=== PATIENT | female | born 1950 | race Caucasian/White ===

== ENCOUNTER 2021-06-08 21:55 | Emergency (ER) | payer BC, MEDICAID ==
[~2021-06-08] VITALS: Ht 167.6 cm; Wt 82.0 kg
[2021-06-08] MEDS ORDERED: IBUPROFEN 600MG TABLET PO STA (22:31)
[2021-06-08 23:27] LABS: BASOPHILS % 0.7 % (0.0-2.0); EOSINOPHILS % 2.1 % (0.0-5.0); HEMATOCRIT. 41.5 % (36.0-48.0); HEMOGLOBIN. 14.4 g/dL (12.0-16.0); LYMPHOCYTES % 24.5 % (20.0-50.0); MEAN CORPUSCULAR HEMOGLOBIN 31.5 pg (28.0-32.0); MEAN CORPUSCULAR VOLUME 91.1 fL (81.0-99.0); MEAN PLATELET VOLUME 7.5 fl (7.4-10.4); MONOCYTES % 11.5 % (2.0-8.0); NEUTROPHILS % 61.2 % (40.0-76.0); PLATELET 246 x1000/uL (130-400); RED BLOOD CELL COUNT 4.56 mill/uL (4.2-5.4)
[2021-06-08 23:32] LABS: CHLORIDE 107 mEq/L (98-107)
[2021-06-09 00:43] VITALS: BP 140/78
== END 2021-06-09 01:05 | disposition home or self-care (01) ==
LOC: ER 21:55
DX: M54.2 Cervicalgia (principal); R60.0 Localized edema; J45.909 Unspecified asthma, uncomplicated
CPT/HCPCS: 36415; 80053; 83880; 85025; 99283

== ENCOUNTER 2022-06-01 22:10 | Emergency (ER) | payer BC, MEDICAID ==
[~2022-06-01] VITALS: Ht 162.6 cm; Wt 73.0 kg
[2022-06-02] MEDS ORDERED: KETOROLAC 60MG/2ML VIAL IM ONE (04:00)
[2022-06-02 05:42] LABS: CLARITY URINE TURBID (CLEAR); COLOR URINE DARK YELLOW (YELLOW); KETONES URINE TRACE (NEGATIVE); LEUKOCYTE ESTERASE URINE 2+ (NEGATIVE); NITRITE URINE NEGATIVE (NEGATIVE); OCCULT BLOOD URINE TRACE (NEGATIVE); PH URINE 5.5 (4.5-8.0); PROTEIN URINE 1+ (NEGATIVE); SPECIFIC GRAVITY URINE 1.031 (1.005-1.030)
[2022-06-02] MEDS ORDERED: CEPH500T MT (05:45)
[2022-06-02] MEDS ORDERED: IBUP-2029 MT (05:45)
[2022-06-02] MEDS ORDERED: EMTR1TAB11 MT (05:59)
[2022-06-02] MEDS ORDERED: RALT400T MT (05:59)
[2022-06-02] MEDS ORDERED: CEFTRIAXONE SODIUM 1 G/VIAL IM ONE (06:00)
[2022-06-02] MEDS ORDERED: AZITHROMYCIN 500 MG TABLET PO ONE (06:00)
[2022-06-02] MEDS ORDERED: CEPHALEXIN 250MG CAPSULE PO ONE (06:00)
[2022-06-02 06:13] LABS: BASOPHILS % 0.8 % (0.0-2.0); EOSINOPHILS % 4.9 % (0.0-5.0); HEMATOCRIT. 38.9 % (36.0-48.0); HEMOGLOBIN. 13.6 g/dL (12.0-16.0); MEAN CORPUSCULAR HEMOGLOBIN 32.3 pg (28.0-32.0); MEAN CORPUSCULAR VOLUME 92.4 fL (81.0-99.0); MEAN PLATELET VOLUME 7.1 fl (7.4-10.4); MONOCYTES % 11.3 % (2.0-8.0); PLATELET 305 x1000/uL (130-400); RED BLOOD CELL COUNT 4.21 mill/uL (4.2-5.4); RED CELL DISTRIBUTION WIDTH 12.7 % (11.6-14.6)
[2022-06-02 06:17] LABS: CHLORIDE 104 mEq/L (98-107)
[2022-06-02] MEDS ORDERED: KETOROLAC 60MG/2ML VIAL IM SCH (07:15)
[2022-06-02 07:34] VITALS: BP 145/90
[2022-06-03 13:06] LABS: HIV SCREEN 4G Non Reactive (Non Reactive)
== END 2022-06-02 08:12 | disposition home or self-care (01) ==
LOC: ER 22:10
DX: M25.561 Pain in right knee (principal); N39.0 Urinary tract infection, site not specified; T74.21XA Adult sexual abuse, confirmed, initial encounter; F41.9 Anxiety disorder, unspecified; J45.909 Unspecified asthma, uncomplicated
CPT/HCPCS: 36415; 73562; 80053; 81003; 85025; 87086; 87389; 96372; 99284; J0696; J1885

== ENCOUNTER 2022-06-20 23:07 | Emergency (ER) | payer BC, MEDICAID ==
[~2022-06-20] VITALS: Ht 172.7 cm; Wt 75.0 kg
[~2022-06-20 23:07] MED LIST: CEPH500T MT; EMTR1TAB11 MT; IBUP-2029 MT; RALT400T MT
[2022-06-21] MEDS ORDERED: IBUPROFEN 600MG TABLET PO STA (03:26)
[2022-06-21 03:55] VITALS: BP 156/86
== END 2022-06-21 05:24 | disposition left against medical advice (07) ==
LOC: ER 23:17
DX: M25.511 Pain in right shoulder (principal); M54.50 Low back pain, unspecified; J45.909 Unspecified asthma, uncomplicated; F41.9 Anxiety disorder, unspecified; W01.0XXA Fall on same level from slipping, tripping and stumbling without subsequent striking against object, initial encounter; Y93.9 Activity, unspecified; Y92.9 Unspecified place or not applicable; Z88.1 Allergy status to other antibiotic agents; Z91.81 History of falling
CPT/HCPCS: 72100; 73030; 99284

== ENCOUNTER 2023-06-14 21:25 | Emergency (ER) | payer BC, MEDICAID ==
[~2023-06-14] VITALS: Ht 170.2 cm; Wt 75.0 kg
[2023-06-14 21:30] VITALS: BP 136/80; PULSE 68; RESP 18; TEMP 98; O2SAT 99
[2023-06-15] MEDS ORDERED: TRAM50TA3 MT (05:41)
[2023-06-15] MEDS ORDERED: KETOROLAC 60MG/2ML VIAL IM ONE (05:45)
[2023-06-15] MEDS ORDERED: CYCLOBENZAPRINE 10MG TABLET PO ONE (05:45)
[2023-06-15] MEDS ORDERED: CYCLOBENZAPRINE 10MG TABLET PO NR (06:00)
== END 2023-06-15 05:06 | disposition home or self-care (01) ==
LOC: ER 21:25
DX: G89.29 Other chronic pain (principal); M54.9 Dorsalgia, unspecified; I10 Essential (primary) hypertension; Z79.899 Other long term (current) drug therapy
CPT/HCPCS: 99283; 81025; 96372; J1885